=== PATIENT | male | born 1970 | race Caucasian/White ===

== ENCOUNTER 2017-02-20 14:34 | Emergency (ER) | payer SELFPAY ==
[~2017-02-20] VITALS: Ht 182.9 cm; Wt 77.6 kg
[2017-02-20] MEDS ORDERED: LIDOCAINE 1% (10mg/ml) 30ml SDV INFIL ONE (14:45)
[2017-02-20] MEDS ORDERED: TETANUS,DIPHTH,a PERTUS (Tdap) 0.5 ML VIAL IM ONE (14:45)
--- NOTE | 2017-02-20 14:50 | ERPDOC ---
Departure Disposition Decision Date: February 20, 2017 Disposition Decision Time: 22:10 Disposition: 01 DISCHARGED HOME, SELF-CARE Impression Impression Impression: Primary Impression: Suicidal ideation Severity: Moderate Condition: Stable Seen By: Mid-level only Problems/Meds/Labs Reviewed?: Yes Medications reviewed and manag: Yes Follow up care ordered?: Yes Mental Status: Alert HPI - Psychosocial General Chief Complaint: Suicide Ideation/Attempt Stated Complaint: SUICIDE Time Seen by MD: 14:37 Source: patient Exam Limitations: no limitations HPI - Psychosocial Initial Comments He was at home today and cut himself on his left wrist with a box attacher 3 times. He states that he was wanting to kill himself. He has been having suicidal thoughts lately but denies any other injury or ingestion today. He has never had a suicide attempt in the past but has thought about it before. He does have a history of bipolar disorder but does not take any medications as he is not insured. Occurred At: home Onset: Rapid Duration: 1 hr Severity: moderate Associated Symptoms: injury (left wrist laceration), suicidal ideation, DENIES : anxiety, impaired concentration, ingestion, insomnia Hx of Similar Symptoms: No Allergies: Coded Allergies: No Known Allergies (Unverified , 02/20/17) Past History Past Medical History Psychological: bipolar Surgical History Denies Surgeries Family History Family History: Negative Review of Systems Constitutional Constitutional: DENIES: chills, dizziness, fatigue, fever, weakness ENMT Ears: DENIES: drainage, pain Sinuses: DENIES: congestion, rhinorrhea Mouth/Throat: DENIES: painful swallowing, scratchy throat, sore throat Cardiovascular Cardiac: DENIES: chest pain, orthopnea Rhythm/Rate: DENIES: irregular beat, palpitations Pulmonary Respiratory: DENIES: cough, dyspnea, sputum, tachypnea GI Upper Abdomen: DENIES: nausea, pain, vomiting Lower Abdomen: DENIES: constipation, diarrhea, pain Integumentary Skin: DENIES: rash Neurological General: DENIES: headache, numbness, tingling, weakness Physical Exam General General Nourishment: well nourished, well developed, appears stated age, no acute distress, adult General Body Habitus: well groomed Vitals and Pain First Documented Vital Signs Date Time Temp Pulse Resp B/P Pulse Ox O2 Delivery O2 Flow Rate FiO2 02/20/17 14:35 98.4 87 16 116/74 98 Room Air Weight: Kilograms: Height (feet): Height (inches): Triage Pain Scale: RN VS reviewed by Provider: Yes Normal Exams: Neck: Full range of motion, without adenopathy, JVD, bruits or thyromegaly Chest/Resp: Clear all sandoval, with good airflow, and symmetry bilaterally CV: Regular rate and rhythm, without murmur or gallop, Pulses 2+ all extremities, capillary refill, <2 seconds all ext., no pedal edema noted Abdomen: Bowel sounds positive, soft, non-tender, non-distended, no hepatosplenomegaly, masses or bruits noted Lymphatic: No lymphadenopathy, or lymphedema noted Integumentary: No rashes, hives, or bruising noted Neurologic: Patient is alert, and oriented Psychiatric: Patient exhibits, appropriate attention, emotion and affect Integumentary (brief) Integumentary Brief: FOUND: other (There are 3 lacerations on the left wrist. Denies any numbness/tingling in the left palm or fingers. ROM to the fingers and wrist is intact. Able to fully flex and extend the fingers and the wrist. Able to make an OK sign, thumbs up sign, and peace sign without difficulty. ) Differential Diagnoses Considering: Anxiety, Bipolar, Depression, [place], Acute Psychosis, Suicidal Attempt, Suicidal Ideation Procedures Procedures Performed Procedures Performed: Laceration Repair Laceration/Wound Repair Wound/Laceration Repair #1: Wound Location: upper extremity (left wrist) Wound Length (cm): 5 Depth, Shape: subcutaneous, linear Explored: clean Irrigated: saline Prep: chlorasept Anesthesia: 1% Lidocaine Volume Anesthetic (ccs): 1 Type of Block: local Repaired With: Sutures Suture Size: 4:0 Suture Type: prolene Number of Sutures: 10 Layer Closure?: No Wound/Laceration Repair #2: Wound Location: upper extremity (left wrist pain) Wound Length (cm): 3 Depth, Shape: subcutaneous, linear Explored: clean Irrigated: saline Prep: chlorasept Anesthesia: 1% Lidocaine Volume Anesthetic (ccs): 1 Type of Block: local Wound Revision?: No Repaired With: Sutures Suture Size: 4:0 Suture Type: prolene Number of Sutures: 6 Layer Closure?: No Wound/Laceration Repair #3: Wound Location: upper extremity (left wrist ) Wound Length (cm): 4.5 Depth, Shape: subcutaneous, linear Explored: clean Irrigated: saline Prep: chlorasept Anesthesia: 1% Lidocaine Volume Anesthetic (ccs): 1 Type of Block: local Repaired With: Sutures Suture Size: 4:0 Suture Type: prolene Number of Sutures: 7 Layer Closure?: No Progress Results/Orders Orders Procedure Category Date Status Time Salicylate LAB 02/20/17 Complete Acetaminophen LAB 02/20/17 Complete Ethanol LAB 02/20/17 Complete Drug Screen LAB 02/20/17 Complete Urine-Test At [facility] [place] 14:44 Ua, Dip Wreflex LAB 02/20/17 Complete [employer] Administrative Assistant 14:44 Cbc W/Auto LAB 02/20/17 Complete Diff-Reflex Manual Bmp - Basic Metabolic LAB 02/20/17 Complete Panel Tetanus,Diphth,A PHA 02/20/17 Complete Pertus (Tdap) (Adacel) 14:45 Lidocaine 1% PHA 02/20/17 Complete (Xylocaine 1%) 14:45 Dressing (Ed) EDM 02/20/17 Transmitted 15:51 Neomycin/Polymyxin/Bacitracin PHA 02/20/17 Complete (Neosporin 16:00 Lab Results Laboratory Tests Test 02/20/17 14:58 02/20/17 15:55 02/20/17 16:22 White Blood Count 9.5T/MM3 Red Blood Count 4.99M/MM3 Hemoglobin 15.6GM/DL Hematocrit 45.0% Mean Corpuscular Volume 90.2UM3 Mean Corpuscular Hemoglobin 31.3UUG Mean Corpuscular Hemoglobin Concent 34.7GM/DL RDW Standard Deviation 39.0FL Platelet Count 314T/MM3 Mean Platelet Volume 9.6UM3 Immature Granulocyte % (Auto) 0.2% Neutrophils (%) (Auto) 69.7% Lymphocytes (%) (Auto) 23.2% Monocytes (%) (Auto) 6.1% Eosinophils (%) (Auto) 0.5% Basophils (%) (Auto) 0.3% Absolute Immature Granulocyte (auto 0.02T/MM3 Absolute Neutrophils (auto) 6.6T/MM3 Absolute Lymphocytes (auto) 2.2T/MM3 Absolute Monocytes (auto) 0.6T/MM3 Absolute Eosinophils (auto) 0.1T/MM3 Absolute Basophils (auto) 0.0T/MM3 Turbidity < 20 Sodium Level 144MEQ/L Potassium Level 3.9MEQ/L Chloride Level 101MEQ/L Carbon Dioxide Level 31MEQ/L Anion Gap 12MEQ/L Blood Urea Nitrogen 15.0MG/DL Creatinine 0.9MG/DL Glomerular Filtration Rate Calc 90 BUN/Creatinine Ratio 17RATIO Glucose Level 198MG/DL Calculated Osmolality 284MOSM/KG Calcium Level 9.4MG/DL Icterus Index < 2 Chemistry Specimen Hemolysis < 15 Salicylates Level < 1.0MG/DL Acetaminophen Level < 10UG/ML Alcohol, Quantitative <10MG/DL Urine Collection Type Cleancatch-midstream Urine Color Yellow Urine Turbidity Sl cloudy Urine pH 6.5 Urine Specific [place] 1.015 Urine Protein Trace Urine Glucose (UA) Negative Urine Ketones Negative Urine Blood Negative Urine Nitrite Negative Urine Bilirubin Negative Urine Urobilinogen 1.0EU/DL Urine Leukocyte Esterase Negative Urinalysis Comment Microscopic not ind. Urine Opiates Screen NegativeNG/ML Urine Oxycodone Screen NegativeNG/ML Urine Methadone Screen NegativeNG/ML Urine Propoxyphene Screen NegativeNG/ML Urine Barbiturates Screen NegativeNG/ML Urine Tricyclic Antidepressants NegativeNG/ML Urine Phencyclidine Screen NegativeNG/ML Urine Amphetamines Screen NegativeNG/ML Urine Methamphetamines Screen NegativeNG/ML Urine Benzodiazepines Screen NegativeNG/ML Urine Cocaine Screen NegativeNG/ML Urine Cannabinoids Screen NegativeNG/ML Lab Scanned Report REFERENCE [id number] Medications Current ED Medications Diphtheria/ Tetanus/Acell Pertussis (Adacel) 0.5 ml O ONCE IM Last administered on 02/20/17 14:55; Start 02/20/17 at 14:45; Stop 02/20/17 at 14:46; Status DC Lidocaine HCl (Xylocaine 1%) 100 mg O ONCE INFIL Last administered on 14:53; Start 02/20/17 at 14:45; Stop 02/20/17 at 14:46; Status DC Neomycin/ Polymyxin/ Bacitracin (Neosporin) 1 applic O ONCE TOP Last administered on 02/20/17 15:55; Start 02/20/17 at 16:00; Stop 02/20/17 at 16:01; Status DC Progress Progress 1632- Spoke with Lyn HERNANDEZ from . She will be here to do a screen MAG but it may be a few hours. 1900- Lyn HERNANDEZ in unit for evaluation. 2203- Spoke with Dr Moreno at [facility]. He does accept for admission at this time. TORSTEN NICOLE ASSOCIATE [employer] INTEGRITY ENGINEER February 20, 2017 14:50
[2017-02-20 14:53] VITALS: Ht 182.9 cm; Wt 77.6 kg
[2017-02-20 15:10] LABS: BASOPHILS % (AUTO) 0.3 % (0-2); EOSINOPHILS # (AUTO) 0.1 T/MM3 (0-0.5); EOSINOPHILS % (AUTO) 0.5 % (0-4); HGB - HEMOGLOBIN 15.6 GM/DL (13.5-17.5); IMMATURE GRANULOCYTE # (AUTO) 0.02 T/MM3 (0.00-0.03); IMMATURE GRANULOCYTE % (AUTO) 0.2 % (0.0-0.5); LYMPHOCYTES # (AUTO) 2.2 T/MM3 (1-4.8); LYMPHOCYTES % (AUTO) 23.2 % (23-45); MEAN CORPUSCULAR HGB 31.3 UUG (26-34); MEAN CORPUSCULAR HGB CONC(MCHC 34.7 GM/DL (31-37); MEAN CORPUSCULAR VOLUME 90.2 UM3 (80-100); MEAN PLATELET VOLUME 9.6 UM3 (9.4-12.4); MONOCYTES # (AUTO) 0.6 T/MM3 (0-0.8); MONOCYTES % (AUTO) 6.1 % (0-9.0); NEUTROPHILS #(AUTO)-ABSOLUTE 6.6 T/MM3 (1.8-7.7); NEUTROPHILS % (AUTO) 69.7 % (33-66); RED BLOOD COUNT 4.99 M/MM3 (4.50-5.90); WBC - WHITE BLOOD COUNT 9.5 T/MM3 (4.5-11.0)
[2017-02-20 15:15] LABS: ACETAMINOPHEN < 10 UG/ML (10-30); ANION GAP 12 MEQ/L (5-15); BUN/CREATININE RATIO 17 RATIO (6-26); CALCIUM 9.4 MG/DL (8.4-10.2); CHLORIDE 101 MEQ/L (98-107); CO2 - CARBON DIOXIDE 31 MEQ/L (22-30); CREATININE 0.9 MG/DL (0.8-1.5); ETHANOL <10 MG/DL (<10); GLOMERULAR FILTRATION RATE 90; GLUCOSE 198 MG/DL (75-110); POTASSIUM 3.9 MEQ/L (3.6-5); SALICYLATE < 1.0 MG/DL (2-20); SODIUM 144 MEQ/L (134-144)
--- NOTE | 2017-02-20 15:25 | NUR ---
WOUND REPAIR LIDO 1 % USED BY BRIANNA FOR WOUND REPAIR
[2017-02-20] MEDS ORDERED: NEOMYCIN/POLYM/BACITR OINT PACKET TOP ONE (16:00)
[2017-02-20 16:05] LABS: BLOOD, URINE NEGATIVE (NEGATIVE); COLOR,URINE YELLOW (YELLOW); LEUKOCYTE ESTERASE ,URINE NEGATIVE (NEGATIVE); NITRITE,URINE NEGATIVE (NEGATIVE)
[2017-02-20 16:17] LABS: AMPHETAMINE SCREEN,URINE NEGATIVE; BARBITURATE SCREEN,URINE NEGATIVE; BENZODIAZEPINES SCREEN,URINE NEGATIVE; CANNABINOID SCREEN,URINE NEGATIVE; COCAINE SCREEN,URINE NEGATIVE; METHADONE SCREEN, URINE NEGATIVE; METHAMPHETAMINE SCREEN, URINE NEGATIVE; OPIATE SCREEN,URINE NEGATIVE; PHENCYCLIDINE SCREEN,URINE NEGATIVE; TRICYCLIC ANTIDEPRESSANT,URINE NEGATIVE
--- NOTE | 2017-02-20 17:09 | NUR ---
BRIANNA CALVERT IN SCREENER COMING AT UNKNOWN TIME
--- NOTE | 2017-02-20 18:00 | NUR ---
INTAKE PT SITTING ON SIDE OF BED. EATING SANDWICH, CHIPS, APPLESAUCE, JUICE
--- NOTE | 2017-02-20 18:15 | NUR ---
REPORT TO FARHAN PLATT
--- NOTE | 2017-02-20 19:01 | NUR ---
[facility] HERE FROM [facility] TO SCREEN THE PATIENT
--- NOTE | 2017-02-20 20:12 | NUR ---
STATUS PT REMAINS CALM AND COOPERATIVE CARYN AT BEDSIDE EXPLAINED THE PROCESS OF WAITING FOR DR TO DR CALL FROM [facility] AND THEN WE WILL CALL FOR TRANSPORT. DID REPORT TO BOTH THAT SOMETIMES THIS IS A LONG PROCESS. THEY BOTH REPORTED UNDERSTANDING
--- NOTE | 2017-02-20 21:23 | NUR ---
ENRIKE REED APRN CALLED TO [facility] FOR TO THEY REPORT THE [facility] WILL CALL US BACK
--- NOTE | 2017-02-20 22:05 | NUR ---
[facility] CALL TO [facility] FOR TRANSFER TO [place] ESTIMATING ABOUT AN HOUR
--- NOTE | 2017-02-20 22:35 | NUR ---
REPORT REPORT CALLED TO TIA RN AT [facility]
--- NOTE | 2017-02-21 00:07 | NUR ---
[facility] HERE PT CHANGED INTO [facility] TO BATHROOM TO VOID PT CALM AND COOPERATIVE
--- NOTE | 2017-02-21 00:11 | NUR ---
CARYN PT TELLS [facility] AND THEY PLAN TO TALK WHEN HE IS ABLE TO AT [facility]
[2017-02-21 00:13] VITALS: BP 122/76; PULSE 76; RESP 16; TEMP 98.4; O2SAT 96
--- NOTE | 2017-02-21 00:13 | NUR ---
TRANSFER PT TRANSFERED TO [facility] BY [facility]
== END 2017-02-21 00:13 | disposition home or self-care (01) ==
LOC: ED 14:34
DX: S61.512A Laceration without foreign body of left wrist, initial encounter (principal); X78.1XXA Intentional self-harm by knife, initial encounter; Y93.89 Activity, other specified; Y92.009 Unspecified place in unspecified non-institutional (private) residence as the place of occurrence of the external cause; Y99.8 Other external cause status
CPT/HCPCS: 36415; 80048; 80306; 80307; 81003; 85025; 90471; 90715